=== PATIENT | male | born 1975 | race Caucasian/White ===

== ENCOUNTER 2020-10-31 22:02 | Inpatient (IN) | payer MEDICAID ==
[~2020-10-31] VITALS: Ht 175.3 cm; Wt 121.0 kg
[2020-10-31] MEDS ORDERED: normal saline 1000ML IV soln IVB ONE (23:15)
[2020-10-31] MEDS ORDERED: vancomycin/NS 1 GM ADD-VANTAGE 250 ML IV ONE (23:15)
--- NOTE | 2020-10-31 23:33 | NUR ---
Port xray at bedside.
[2020-10-31 23:43] LABS: BASOPHILS # (AUTO) 0.1 X10'3 (0-0.2); BASOPHILS % (AUTO) 0.5 % (0-1); EOSINOPHILS # (AUTO) 0.2 X10'3 (0-0.9); EOSINOPHILS % (AUTO) 0.9 % (0-6); HEMOGLOBIN 14.1 g/dl (14.0-17.9); LYMPHOCYTES # (AUTO) 2.7 X10'3 (1.1-4.8); LYMPHOCYTES % (AUTO) 16.5 % (21-51); MEAN CORPUSCULAR HEMOGLOBIN 28.3 PG (27.0-31.0); MEAN CORPUSCULAR HGB CONC 32.8 g/dL (33.0-36.5); MEAN CORPUSCULAR VOLUME 86.3 FL (78-98); MEAN PLATELET VOLUME 7.4 FL (7.4-10.4); MONOCYTES # (AUTO) 1.5 X10'3 (0-0.9); MONOCYTES % (AUTO) 9.2 % (2-12); NEUTROPHILS % (AUTO) 72.9 % (42-75); PLATELET COUNT 351 X10'3 (140-440); RED BLOOD COUNT 4.98 X10'6 (4.70-6.10); RED CELL DISTRIBUTION WIDTH 14.6 % (11.5-14.5); WHITE BLOOD COUNT 16.5 X10'3 (4.5-11.0)
[2020-11-01 00:16] LABS: ALANINE AMINOTRANSFERASE 39 U/L (12-78); ALBUMIN 3.4 G/DL (3.4-5.0); ALBUMIN/GLOBULIN RATIO 0.6 (1.1-1.5); ALKALINE PHOSPHATASE 74 IU/L (46-116); ANION GAP 8 (8-16); ASPARTATE AMINO TRANSFERASE 18 U/L (10-37); BILIRUBIN,TOTAL 0.2 MG/DL (0.1-1.0); BLOOD UREA NITROGEN 11 MG/DL (7-18); BUN/CREATININE RATIO 10.6 (5.4-32.0); C-REACTIVE PROTEIN 6.68 MG/DL (0.0-0.5); CALCIUM 9.3 MG/DL (8.5-10.1); CHLORIDE 101 MMOL/L (99-107); CREATININE 1.04 MG/DL (0.60-1.10); GLUCOSE 107 MG/DL (70-104); POTASSIUM 3.9 MMOL/L (3.5-5.1); SODIUM 138 MMOL/L (135-145); TOTAL CARBON DIOXIDE 28.9 MMOL/L (24-32); TOTAL PROTEIN 8.9 G/DL (6.4-8.2); eGFR 78 ML/MIN
[2020-11-01] MEDS ORDERED: normal saline 1000ML IV soln IVB ONE (01:15)
[2020-11-01] MEDS ORDERED: acetaminophen 325mg tablet PO PRN (01:45)
[2020-11-01] MEDS ORDERED: potassium Cl 20 mEq SR tablet PO PRN ×2 (01:45)
[2020-11-01] MEDS ORDERED: ondansetron/PF 4mg/2ml inj IV PRN (01:45)
[2020-11-01] MEDS ORDERED: potassium Cl 40MEQ/1/2NS 520ml 520 ML IV PRN ×2 (01:45)
[2020-11-01] MEDS ORDERED: magnesium 2GM in 50ml NS 50 ML IV PRN (01:45)
[2020-11-01] MEDS ORDERED: magnesium 4gm in 100ml NS 100 ML IV PRN (01:45)
[2020-11-01] MEDS ORDERED: morphine 2 MG/ML inj. syringe IV PRN (01:45)
[2020-11-01] MEDS ORDERED: magnesium Cl slow-release 64mg tablet PO PRN (01:45)
[2020-11-01] MEDS ORDERED: HYDROcodone/acetaminophen 5mg/325mg tablet PO PRN (01:45)
[2020-11-01] MEDS ORDERED: NO HOME MEDS (01:47)
[2020-11-01] MEDS: normal saline 1000ml 1,000 ML IV SCH ×3 (03:48→20:12)
--- NOTE | 2020-11-01 06:48 | NUR ---
I have received report from ERIC Chiu and had the opportunity to ask questions and assume patient care.
--- NOTE | 2020-11-01 07:13 | NUR ---
Pt arrived to surgical floor via wheelchair. Settled in room 356A with all belongings.
[2020-11-01 07:15] VITALS: BP 141/82
[2020-11-01] MEDS: K and/or MAG REPLACEMENT MC SCH ×2 (08:00→20:00)
[2020-11-01] MEDS: docusate sod 100mg capsule PO SCH ×2 (08:00→20:14)
[2020-11-01 11:00] VITALS: BP 140/75
[2020-11-01] MEDS: VANCOmycin 1250MG/NS 250ml Bag 250 ML IV SCH (12:02)
[2020-11-01] MEDS: piperacillin/tazo 3.375gm/50ml 50 ML IV SCH (16:20)
--- NOTE | 2020-11-01 17:10 | NUR ---
Dressing to left hand changed. Cleansed with normal saline, xeroform applied, covered with 4x4 gauze and wrapped in kerlix. Pt tolerated well. Will continue to monitor.
[2020-11-01 18:00] VITALS: BP 133/64
--- NOTE | 2020-11-01 18:49 | NUR ---
Problems reprioritized. Patient report given, questions answered & plan of care reviewed with ERIC Pedersen.
--- NOTE | 2020-11-01 18:56 | NUR ---
Patient in room [facility] 356. I have received report from ERIC Barnes and had the opportunity to ask questions and assume patient care.
[2020-11-02] MEDS: VANCOmycin 1250MG/NS 250ml Bag 250 ML IV SCH ×3 (00:05→23:08)
[2020-11-02 01:23] VITALS: BP 144/79
[2020-11-02] MEDS: piperacillin/tazo 3.375gm/50ml 50 ML IV SCH ×3 (01:47→16:26)
--- NOTE | 2020-11-02 06:22 | NUR ---
Problems reprioritized. Patient report given, questions answered & plan of care reviewed with REIC Barnes.
--- NOTE | 2020-11-02 06:25 | NUR ---
Patient in room [facility] 356. I have received report from ERCI Pedersen and had the opportunity to ask questions and assume patient care.
[2020-11-02 07:00] VITALS: BP 121/57
[2020-11-02 07:43] LABS: BASOPHILS # (AUTO) 0.1 X10'3 (0-0.2); BASOPHILS % (AUTO) 0.9 % (0-1); EOSINOPHILS # (AUTO) 0.2 X10'3 (0-0.9); EOSINOPHILS % (AUTO) 1.8 % (0-6); HEMOGLOBIN 12.6 g/dl (14.0-17.9); LYMPHOCYTES # (AUTO) 2.9 X10'3 (1.1-4.8); LYMPHOCYTES % (AUTO) 29.1 % (21-51); MEAN CORPUSCULAR HEMOGLOBIN 28.2 PG (27.0-31.0); MEAN CORPUSCULAR HGB CONC 33.3 g/dL (33.0-36.5); MEAN CORPUSCULAR VOLUME 84.9 FL (78-98); MEAN PLATELET VOLUME 7.7 FL (7.4-10.4); MONOCYTES % (AUTO) 9.7 % (2-12); NEUTROPHILS # (AUTO) 5.9 X10'3 (1.8-7.7); NEUTROPHILS % (AUTO) 58.5 % (42-75); PLATELET COUNT 316 X10'3 (140-440); RED BLOOD COUNT 4.47 X10'6 (4.70-6.10); RED CELL DISTRIBUTION WIDTH 14.5 % (11.5-14.5); WHITE BLOOD COUNT 10.1 X10'3 (4.5-11.0)
[2020-11-02] MEDS: normal saline 1000ml 1,000 ML IV SCH ×2 (07:48→19:28)
[2020-11-02 07:52] LABS: ALBUMIN 2.7 G/DL (3.4-5.0); ANION GAP 7 (8-16); BLOOD UREA NITROGEN 12 MG/DL (7-18); BUN/CREATININE RATIO 12.9 (5.4-32.0); CALCIUM 8.3 MG/DL (8.5-10.1); CHLORIDE 105 MMOL/L (99-107); CREATININE 0.93 MG/DL (0.60-1.10); GLUCOSE 94 MG/DL (70-104); SODIUM 139 MMOL/L (135-145); TOTAL CARBON DIOXIDE 27.3 MMOL/L (24-32); eGFR 89 ML/MIN
[2020-11-02] MEDS: K and/or MAG REPLACEMENT MC SCH ×2 (08:00→20:00)
[2020-11-02] MEDS: docusate sod 100mg capsule PO SCH ×2 (09:21→19:26)
[2020-11-02 11:00] VITALS: BP 142/73
[2020-11-02 18:00] VITALS: BP 162/88
--- NOTE | 2020-11-02 18:10 | NUR ---
Problems reprioritized. Patient report given, questions answered & plan of care reviewed with ERIC Pedersen.
--- NOTE | 2020-11-02 18:25 | NUR ---
Patient in room [facility] 356. I have received report from ERIC Barnes and had the opportunity to ask questions and assume patient care.
[2020-11-02] MEDS: lactobacillus rhamnosus 10,000 MMU CELLS/CAPSULE PO SCH (19:26)
[2020-11-02] MEDS ORDERED: VANCOMYCIN LEVEL IV ONE (23:30)
[2020-11-03 00:03] LABS: PARTIAL THROMBOPLASTIN TIME 25 SECONDS (22-32)
[2020-11-03 00:15] LABS: BASOPHILS # (AUTO) 0.1 X10'3 (0-0.2); BASOPHILS % (AUTO) 1.1 % (0-1); EOSINOPHILS # (AUTO) 0.1 X10'3 (0-0.9); EOSINOPHILS % (AUTO) 1.6 % (0-6); HEMATOCRIT 38.4 % (42.0-52.0); HEMOGLOBIN 12.8 g/dl (14.0-17.9); LYMPHOCYTES # (AUTO) 2.2 X10'3 (1.1-4.8); MEAN CORPUSCULAR HEMOGLOBIN 28.6 PG (27.0-31.0); MEAN CORPUSCULAR HGB CONC 33.4 g/dL (33.0-36.5); MEAN CORPUSCULAR VOLUME 85.8 FL (78-98); MEAN PLATELET VOLUME 7.7 FL (7.4-10.4); MONOCYTES # (AUTO) 0.6 X10'3 (0-0.9); MONOCYTES % (AUTO) 7.3 % (2-12); NEUTROPHILS # (AUTO) 5.3 X10'3 (1.8-7.7); PLATELET COUNT 340 X10'3 (140-440); RED BLOOD COUNT 4.48 X10'6 (4.70-6.10); RED CELL DISTRIBUTION WIDTH 14.4 % (11.5-14.5); WHITE BLOOD COUNT 8.3 X10'3 (4.5-11.0)
[2020-11-03 00:28] LABS: ALANINE AMINOTRANSFERASE 34 U/L (12-78); ALBUMIN 2.8 G/DL (3.4-5.0); ALBUMIN/GLOBULIN RATIO 0.6 (1.1-1.5); ALKALINE PHOSPHATASE 64 IU/L (46-116); ANION GAP 9 (8-16); ASPARTATE AMINO TRANSFERASE 14 U/L (10-37); BILIRUBIN,TOTAL 0.3 MG/DL (0.1-1.0); BLOOD UREA NITROGEN 14 MG/DL (7-18); BUN/CREATININE RATIO 14.3 (5.4-32.0); CALCIUM 8.6 MG/DL (8.5-10.1); CHLORIDE 105 MMOL/L (99-107); CREATININE 0.98 MG/DL (0.60-1.10); GLUCOSE 106 MG/DL (70-104); MAGNESIUM 2.1 MG/DL (1.5-2.4); POTASSIUM 4.3 MMOL/L (3.5-5.1); SODIUM 139 MMOL/L (135-145); TOTAL CARBON DIOXIDE 25.1 MMOL/L (24-32); TOTAL PROTEIN 7.7 G/DL (6.4-8.2); eGFR 83 ML/MIN
[2020-11-03] MEDS: piperacillin/tazo 3.375gm/50ml 50 ML IV SCH ×3 (01:27→16:03)
[2020-11-03] MEDS: normal saline 1000ml 1,000 ML IV SCH ×3 (03:45→20:06)
--- NOTE | 2020-11-03 06:17 | NUR ---
Problems reprioritized. Patient report given, questions answered & plan of care reviewed with ERIC Martines.
--- NOTE | 2020-11-03 06:48 | NUR ---
Patient in room [facility] 356. I have received report from TAMMI REYES and had the opportunity to ask questions and assume patient care.
[2020-11-03 07:00] VITALS: BP 140/83
[2020-11-03] MEDS: K and/or MAG REPLACEMENT MC SCH ×2 (08:00→20:00)
[2020-11-03] MEDS: lactobacillus rhamnosus 10,000 MMU CELLS/CAPSULE PO SCH ×2 (09:01→19:16)
[2020-11-03] MEDS: docusate sod 100mg capsule PO SCH ×2 (09:02→19:16)
[2020-11-03 11:00] VITALS: BP 125/61
[2020-11-03 18:00] VITALS: BP 155/75
--- NOTE | 2020-11-03 18:32 | NUR ---
I have received report from ERIC Martines and had the opportunity to ask questions and assume patient care.
[2020-11-04] VITALS: BP 146/75
[2020-11-04] MEDS: piperacillin/tazo 3.375gm/50ml 50 ML IV SCH ×2 (01:35→08:31)
--- NOTE | 2020-11-04 06:24 | NUR ---
Problems reprioritized. Patient report given, questions answered & plan of care reviewed with ERIC Martines.
--- NOTE | 2020-11-04 06:32 | NUR ---
Patient in room [facility] 356. I have received report from TAMMI REYES and had the opportunity to ask questions and assume patient care.
[2020-11-04 06:54] LABS: BASOPHILS # (AUTO) 0.1 X10'3 (0-0.2); BASOPHILS % (AUTO) 0.9 % (0-1); EOSINOPHILS # (AUTO) 0.1 X10'3 (0-0.9); EOSINOPHILS % (AUTO) 1.4 % (0-6); HEMATOCRIT 38.6 % (42.0-52.0); HEMOGLOBIN 12.9 g/dl (14.0-17.9); LYMPHOCYTES # (AUTO) 2.8 X10'3 (1.1-4.8); LYMPHOCYTES % (AUTO) 29.5 % (21-51); MEAN CORPUSCULAR HEMOGLOBIN 28.3 PG (27.0-31.0); MEAN CORPUSCULAR HGB CONC 33.5 g/dL (33.0-36.5); MEAN CORPUSCULAR VOLUME 84.5 FL (78-98); MEAN PLATELET VOLUME 7.3 FL (7.4-10.4); MONOCYTES # (AUTO) 0.9 X10'3 (0-0.9); MONOCYTES % (AUTO) 9.3 % (2-12); NEUTROPHILS # (AUTO) 5.7 X10'3 (1.8-7.7); NEUTROPHILS % (AUTO) 58.9 % (42-75); PLATELET COUNT 352 X10'3 (140-440); RED BLOOD COUNT 4.57 X10'6 (4.70-6.10); RED CELL DISTRIBUTION WIDTH 14.2 % (11.5-14.5); WHITE BLOOD COUNT 9.7 X10'3 (4.5-11.0)
[2020-11-04 07:11] LABS: ALBUMIN 2.7 G/DL (3.4-5.0); ANION GAP 9 (8-16); CALCIUM 8.4 MG/DL (8.5-10.1); CHLORIDE 106 MMOL/L (99-107); CREATININE 0.92 MG/DL (0.60-1.10); GLUCOSE 93 MG/DL (70-104); MAGNESIUM 1.9 MG/DL (1.5-2.4); POTASSIUM 3.9 MMOL/L (3.5-5.1); SODIUM 141 MMOL/L (135-145); eGFR 90 ML/MIN
[2020-11-04 07:14] LABS: BLOOD UREA NITROGEN 11 MG/DL (7-18)
[2020-11-04 08:00] VITALS: BP 132/71
[2020-11-04] MEDS: K and/or MAG REPLACEMENT MC SCH (08:00)
[2020-11-04] MEDS: lactobacillus rhamnosus 10,000 MMU CELLS/CAPSULE PO SCH (08:31)
[2020-11-04] MEDS: docusate sod 100mg capsule PO SCH (08:31)
[2020-11-04] MEDS: normal saline 1000ml 1,000 ML IV SCH (09:15)
[2020-11-04 11:00] VITALS: BP 169/97
[2020-11-04] MEDS ORDERED: CLIN-97 PO (11:53)
--- NOTE | 2020-11-04 13:11 | NUR ---
PATIENT RESTING IN BED. SEEN BY DR POLLOCK CLEARED FOR DC. SEEN BY DR HARRISON . ALL DC INSTRUCTIONS GIVEN TO PATIENT AND WOUND CARE SUPPLIES. PRESCRIPTION CALLED INTO [facility] ON [address] . PATIENT DC [facility] WITH FRIEND IN PRIVATE CAR IN STABLE CONDITION. 1300HRS
--- NOTE | 2020-11-04 13:22 | NUR ---
Paper copy of signature page made but printing machine did not print out . original copy is with patient.
[2020-11-04] MEDS ORDERED: VANCOMYCIN LEVEL IV ONE (23:30)
--- NOTE | 2020-11-06 15:35 | NUR ---
CASE MANAGEMENT DISCHARGE FOLLOW UP: Spoke with pt via telephone. Pt reports that he is "doing really good." Denies sx of recurring infection. Verbalizes understanding of s/sx requiring further evaluation/emergent assistance. Pt states that he has not picked up his prescription yet, but that he is on his way to do that now. Emphasized the importance of pt taking medication to prevent infection from coming back/getting worse. Pt verbalizes compliance with MD discharge instructions. Advised pt to call back if he has any trouble with his prescription or with any questions, pt states that he will do so. Pt states no further questions/concerns at this time.
== END 2020-11-04 14:09 | disposition home or self-care (01) | DRG 383 ==
LOC: ER 22:02 → ED HOLD 11-01 01:42 → SUR 3N 11-01 07:10
PROVIDERS: ADMIT Internal Medicine; ATTEND Internal Medicine
DX: L02.512 Cutaneous abscess of left hand (principal); F12.90 Cannabis use, unspecified, uncomplicated; F15.90 Other stimulant use, unspecified, uncomplicated; Z20.822 Contact with and (suspected) exposure to COVID-19; L03.114 Cellulitis of left upper limb; Z59.0 Homelessness
CPT/HCPCS: 36415; 73110; 80048; 80053; 80202; 83605; 83735; 84145; 85025; 85610; 85730; 86140; 87040; 87070; 87077; 87081; 87186; 87635; 96361; 96365; 99285; G0378; J2543; J3370; J7030